=== PATIENT | female | born 2005 | race Caucasian/White ===

== ENCOUNTER 2024-05-07 10:12 | Emergency (ER) | payer OTHER ==
[~2024-05-07] VITALS: Ht 167.6 cm; Wt 59.0 kg
[2024-05-07 10:31] VITALS: BP_SYST 141; PULSE 120; RESP 18; TEMP 99; O2SAT 96
[2024-05-07] MEDS ORDERED: IBUP-1969 PO (11:45)
[2024-05-07] MEDS ORDERED: CLIN-142 PO (11:45)
[2024-05-07 11:54] VITALS: BP_SYST 141; PULSE 120; RESP 18; TEMP 99; O2SAT 96
== END 2024-05-07 11:56 | disposition home or self-care (01) ==
LOC: SED 10:12
DX: I88.8 Other nonspecific lymphadenitis (principal); H92.02 Otalgia, left ear; J02.9 Acute pharyngitis, unspecified
CPT/HCPCS: 99283